=== PATIENT | female | born 1980 | race Hispanic/Latino ===

== ENCOUNTER 2018-10-01 12:35 | Emergency (ER) | payer BC ==
[2018-10-01 14:12] LABS: BILIRUBIN,URINE Negative (NEGATIVE); COLOR,URINE Yellow (YELLOW); GLUCOSE, URINE (UA) Negative (NEGATIVE); KETONES,URINE Negative (NEGATIVE); LEUKOCYTE ESTERASE ,URINE Negative (NEGATIVE); NITRATE,URINE Negative (NEGATIVE); OCCULT BLOOD,URINE Negative (NEGATIVE); PROTEIN,URINE Negative (NEGATIVE); UROBILINOGEN,URINE 0.2 mg/dL (0.2-1.0)
[2018-10-01 14:24] LABS: APPEARANCE,URINE CLEAR (CLEAR)
== END 2018-10-01 18:20 | disposition home or self-care (01) ==
LOC: EDH 12:35
DX: R33.9 Retention of urine, unspecified (principal); R30.0 Dysuria; R10.2 Pelvic and perineal pain; Z90.710 Acquired absence of both cervix and uterus
CPT/HCPCS: 76775; 81003

== ENCOUNTER 2020-08-07 05:30 | Observation (INO) | payer BC ==
[2020-08-03 10:05] LABS: BASOPHILS % (AUTO) 0.6 % (0.0-5.0); EOSINOPHILS % (AUTO) 1.3 % (0.0-8.0); HEMATOCRIT 45.1 % (36-48); LYMPHOCYTES % (AUTO) 42.9 % (21.0-51.0); MEAN CORPUSCULAR HEMOGLOBIN 31.4 pg (27.0-33.0); MEAN CORPUSCULAR HGB CONC 33.3 g/dL (32.0-36.0); MEAN CORPUSCULAR VOLUME 94.5 fL (79-99); MONOCYTES % (AUTO) 8.3 % (3.0-13.0); NEUTROPHILS % (AUTO) 46.6 % (40.0-77.0); PLATELET COUNT (AUTO) 275 K/uL (130-400); RED BLOOD CELL COUNT(AUTO) 4.77 MIL/uL (4.00-5.50); RED CELL DISTRIBUTION WIDTH 12.7 % (11.0-15.5); WHITE BLOOD COUNT (AUTO) 8.7 K/uL (4.8-10.8)
[2020-08-03 10:10] VITALS: BP 119/80
[~2020-08-07] VITALS: Ht 154.9 cm; Wt 79.0 kg
[2020-08-07] VITALS (24 sets, daily range): BP systolic 97–136; BP diastolic 59–76
[~2020-08-07 05:30] MED LIST: FOLIC ACID PO; GABA300C PO; HYDR200T4 PO; METH2.5T6 PO; PRED5TAB PO
[2020-08-07] MEDS ORDERED: LACTATED RINGERS 1000ML 1,000 ML IV ONE (06:14)
[2020-08-07] MEDS ORDERED: DEXAMETHASONE SOD PHOSPHATE 10MG/ML 1ML VIAL ONE ×2 (06:24→07:30)
[2020-08-07] MEDS ORDERED: PROPOFOL 10 MG/ML 20ML VIAL IV ONE ×2 (06:24→07:34)
[2020-08-07] MEDS ORDERED: MIDAZOLAM HCL 1 MG/ML 2ML VIAL ONE (06:24)
[2020-08-07] MEDS ORDERED: ROCURONIUM 10MG/1ML SYR 10 MG/ML ML ONE (06:24)
[2020-08-07] MEDS ORDERED: FENTANYL CITRATE PF 50 MCG/1 ML 5ML AMP IV ONE (06:24)
[2020-08-07] MEDS ORDERED: SUCCINYLCHOLINE CHLORIDE 20 MG/ML 10 ML VIAL ONE (06:24)
[2020-08-07] MEDS ORDERED: LIDOCAINE PF 2% 5ML ABBOJECT ONE (06:24)
[2020-08-07] MEDS ORDERED: CEFAZOLIN SODIUM 1 GM VIAL ONE (07:04)
[2020-08-07] MEDS ORDERED: CEFAZOLIN SODIUM 1 GM VIAL IVP ONE (07:05)
[2020-08-07] MEDS ORDERED: GLYCOPYRROLATE 1 MG/5 ML SYRINGE ONE (07:31)
[2020-08-07] MEDS ORDERED: NEOSTIGMINE 5MG/5ML SYR IV ONE (07:31)
[2020-08-07] MEDS ORDERED: MEPERIDINE-PF 25 MG/ML SYG ONE ×2 (08:23→08:34)
[2020-08-07] MEDS ORDERED: ONDANSETRON HCL 4 MG/2 ML VIAL IVP PRN (09:45)
[2020-08-07] MEDS ORDERED: PROMETHAZINE HCL 25 MG/ML 1ML AMPULE IM PRN (09:45)
[2020-08-07] MEDS ORDERED: IBUPROFEN 600 MG TABLET PO PRN (09:45)
[2020-08-07] MEDS ORDERED: ACETAMINOPHEN-CODEINE 300/30MG TAB PO PRN (09:45)
[2020-08-07] MEDS ORDERED: BISACODYL 10 MG SUPP.RECT RC PRN (09:45)
[2020-08-07] MEDS: DEXTROSE 5 %-0.45 % NACL 1,000 ML IV PRN ×2 (09:55→16:55)
[2020-08-07] MEDS: MEPERIDINE-PF 75 MG/ML SYG IM PRN ×2 (12:27→19:51)
[2020-08-07] MEDS: PROMETHAZINE HCL 25 MG/ML 1ML AMPULE IM PRN ×2 (12:27→19:50)
[2020-08-07] MEDS ORDERED: FLU VACC QS2020-21(6MOS UP)/PF 60 MCG/0.5 ML ML IM ONE (18:00)
[2020-08-07] MEDS: DOCUSATE SODIUM 100 MG CAP PO PRN (22:03)
[2020-08-07] MEDS: SIMETHICONE 80 MG TAB.CHEW PO PRN (22:03)
[2020-08-08] MEDS: DEXTROSE 5 %-0.45 % NACL 1,000 ML IV PRN (01:06)
[2020-08-08 03:00] VITALS: BP 100/68
[2020-08-08 05:14] LABS: HEMATOCRIT 39.9 % (36-48); MEAN CORPUSCULAR HEMOGLOBIN 31.3 pg (27.0-33.0); MEAN CORPUSCULAR HGB CONC 33.8 g/dL (32.0-36.0); MEAN CORPUSCULAR VOLUME 92.6 fL (79-99); RED BLOOD CELL COUNT(AUTO) 4.31 MIL/uL (4.00-5.50); WHITE BLOOD COUNT (AUTO) 12.6 K/uL (4.8-10.8)
[2020-08-08 08:15] VITALS: BP 114/75
[2020-08-08] MEDS: DOCUSATE SODIUM 100 MG CAP PO PRN (10:00)
[2020-08-08] MEDS: SIMETHICONE 80 MG TAB.CHEW PO PRN ×2 (10:00→18:20)
[2020-08-08] MEDS ORDERED: HYDROCODONE/ACETAMINOPHEN 5/325 MG TAB PO PRN (10:00)
[2020-08-08] MEDS: IBUPROFEN 800 MG TAB PO PRN (10:01)
[2020-08-08 11:12] VITALS: BP 118/89
[2020-08-08 16:11] VITALS: BP 108/74
[2020-08-08] MEDS: ACETAMINOPHEN-CODEINE 300/30MG TAB PO PRN (18:20)
[2020-08-08 19:55] VITALS: BP 131/84
[2020-08-08 23:30] VITALS: BP 98/60
[2020-08-09] MEDS: ACETAMINOPHEN-CODEINE 300/30MG TAB PO PRN ×2 (01:28→13:55)
[2020-08-09 03:15] VITALS: BP 105/61
[2020-08-09] MEDS: SIMETHICONE 80 MG TAB.CHEW PO PRN (08:41)
[2020-08-09] MEDS: DOCUSATE SODIUM 100 MG CAP PO PRN (08:41)
[2020-08-09] MEDS: IBUPROFEN 800 MG TAB PO PRN (08:42)
[2020-08-09 11:41] VITALS: BP 111/72
== END 2020-08-09 16:00 | disposition home or self-care (01) ==
LOC: DAH 05:30 → DAHIP 09:13 → DAH 09:13 → WSH 09:30
PROVIDERS: ADMIT Obstetrics & Gynecology; ATTEND Obstetrics & Gynecology
DX: N39.3 Stress incontinence (female) (male) (principal); Z20.828 Contact with and (suspected) exposure to other viral communicable diseases; N81.10 Cystocele, unspecified; M32.9 Systemic lupus erythematosus, unspecified; Z23 Encounter for immunization; Z98.51 Tubal ligation status; Z79.899 Other long term (current) drug therapy
CPT/HCPCS: 36415 ×3; 57240; 57288; 85025; 85027; 86850 ×2; 86900 ×2; 86901 ×2; 90471; 96360; 96361 ×2; 96372; A4215; A4221; A4222; A4223; A4351; A4606; A4663; A5113; A6260; C1771; C9803; G0168; G0378 ×55; J0330; J0690 ×2; J1100 ×2; J2001; J2175 ×4; J2250; J2550 ×2; J2704 ×2; J2710; J3010; J3490; J7120; Q2035; U0003

== ENCOUNTER 2021-04-01 09:08 | Emergency (ER) | payer BC ==
[~2021-04-01] VITALS: Ht 154.9 cm; Wt 80.7 kg
[2021-04-01] MEDS ORDERED: IBUP-2070 PO (11:05)
[2021-04-01] MEDS ORDERED: AZIT500T PO (11:05)
[2021-04-01] MEDS ORDERED: IVER3TAB PO (11:05)
[2021-04-01 11:30] VITALS: BP 138/81
== END 2021-04-01 11:33 | disposition home or self-care (01) ==
LOC: EDH 09:08
DX: U07.1 COVID-19 (principal); J20.8 Acute bronchitis due to other specified organisms; M19.90 Unspecified osteoarthritis, unspecified site; Z79.899 Other long term (current) drug therapy; Z79.52 Long term (current) use of systemic steroids
CPT/HCPCS: 71045